=== PATIENT | female | born 1935 | race Caucasian/White ===

== ENCOUNTER 2016-06-03 16:07 | Emergency (ER) | payer MEDICARE, OTHER ==
[~2016-06-03] VITALS: Ht 157.5 cm; Wt 70.0 kg
[~2016-06-03 16:07] MED LIST: ASPI81TA82 PO; ATOR80TA PO; CLOP75 PO; FISH1000 PO; ISOS30; LEVO.075 PO; LOSA100T PO; METO25 PO; NITR.4 SL; PREG75 PO; TAB-TAB PO
[2016-06-03 16:43] VITALS: BP 142/72; PULSE 59; RESP 16; TEMP 97.6; O2SAT 95
--- NOTE | 2016-06-03 17:15 | RADHPO ---
EXAM DATE/TIME: 06/03/2016 16:53 [facility] COMPARISON: No previous studies available for comparison. INDICATIONS : Left foot pain. MEDICAL HISTORY : None. SURGICAL HISTORY : None. ENCOUNTER: Initial ACUITY: 1 week PAIN SCORE: 6/10 LOCATION: Left foot FINDINGS: Three view examination of the left foot demonstrates no soft tissue swelling, dislocation, or fractur e. The tarsal bones appear intact. The interphalangeal and metatarsophalangeal joints are intact. The calcaneus is intact. Bony mineralization is normal. CONCLUSION: Negative for fracture or dislocation. Followup in 7-10 days is suggested if symptoms persist. Raymond Mendez MD FACR on June 03, 2016 at 17:13 Board Certified Radiologist. This report was verified electronically.
[2016-06-03] MEDS ORDERED: CLOP75TA PO (18:48)
[2016-06-03] MEDS ORDERED: ATOR1TAB18 PO (18:48)
[2016-06-03] MEDS ORDERED: LYRI75CA PO (18:48)
[2016-06-03] MEDS ORDERED: SERT-129 PO (18:48)
[2016-06-03] MEDS ORDERED: ASPI81TA81 (18:48)
[2016-06-03] MEDS ORDERED: METO25TA3 PO (18:48)
[2016-06-03] MEDS ORDERED: LOSA100T PO (18:48)
[2016-06-03] MEDS ORDERED: LEVO50TA4 PO (18:48)
[2016-06-03] MEDS ORDERED: CEPH-460 PO (19:00)
--- NOTE | 2016-06-03 19:01 | PD ---
HPI Chief Complaint: Injury Time Seen by Provider: 18:55 Travel History International Travel<30 days: No Contact w/Intl Traveler<30days: No Traveled to known affect area: No History of Present Illness HPI Patient is an 78-year-old female who presents emergency department for evaluation of left foot pain and swelling. Patient states she kicked her bed a week ago Friday, causing bruising and swelling. For the last 2 days she's had redness on the top of her foot. She denies any fever, chills, nausea, vomiting, chest pain, shortness of breath. She states she has neuropathy so she is denying any significant pain at this time. She denies any lesions or abrasions to her foot. PFSH Past Medical History Hx Anticoagulant Therapy: Yes (ON PLAVIX) Arthritis: Yes Blood Disorders: No Anxiety: Yes Heart Rhythm Problems: No Cancer: No Cardiovascular Problems: Yes (CABG) High Cholesterol: Yes Chemotherapy: No Chest Pain: Yes Congestive Heart Failure: No Cerebrovascular Accident: No Coronary Artery Disease: Yes Diabetes: No Diminished Hearing: Yes (BILAT) Endocrine: Yes Gastrointestinal Disorders: Yes (UMBILICAL HERNIA) Genitourinary: Yes (STONES) Hepatitis: No Hiatal Hernia: No Hypertension: Yes Immune Disorder: No Implanted Vascular Access Dvce: Yes Kidney Stones: Yes Medical other: Yes (UMBILICAL HERNIA) Musculoskeletal: Yes (ARTHRITIS HANDS, LEFT KNEE ) Psychiatric: Yes ( ) Reproductive: No Respiratory: No Radiation Therapy: No Seizures: No Thyroid Disease: Yes (HYPOTHYROIDISM) Tetanus Vaccination: < 5 Years Influenza Vaccination: Yes ?: Not Menopausal: Yes Past Surgical History Abdominal Surgery: No AICD: No Body Medical Devices: HARDWARE RIGHT HIP, STERNAL WIRES CARDIAC STENT Cardiac Surgery: Yes (CABG TRIPLE VESSEL -2006 CARDIAC STENT ) Coronary Artery Bypass Graft: Yes Coronary Stent: Yes Ear Surgery: No Endocrine Surgery: No Eye Surgery: Yes (BILATERAL CATARACT REMOVED) Genitourinary Surgery: No Gynecologic Surgery: No Hysterectomy: No Joint Replacement: No Neurologic Surgery: No Oral Surgery: Yes (T & A ) Pacemaker: No Thoracic Surgery: Yes Tonsillectomy: Yes Other Surgery: Yes (CABG/CARODID ARTERY SX/UMBILICAL HERNIA REPAIR) Social History Alcohol Use: No (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) Tobacco Use: No Substance Use: No Allergies-Medications (Allergen,Severity, Reaction): Coded Allergies: Sulfa (Verified Allergy, Severe, RASH/SWEELING/ITCHING/HIVES, 06/03/16) Reported Meds & Prescriptions Reported Meds & Active Scripts Active Reported Aspir-81 (Aspirin) 81 Mg Tabdr Sertraline (Sertraline HCl) 100 Mg Tab 100 Mg PO DAILY Losartan (Losartan Potassium) 100 Mg Tab 100 Mg PO DAILY Atorvastatin (Atorvastatin Calcium) 80 Mg Tab 80 Mg PO HS Clopidogrel (Clopidogrel Bisulfate) 75 Mg Tab 75 Mg PO DAILY Lyrica (Pregabalin) 75 Mg Cap 75 Mg PO TID Metoprolol Tartrate 25 Mg Tab 25 Mg PO DAILY Levothyroxine (Levothyroxine Sodium) 50 Mcg Tab 50 Mcg PO DAILY Review of Systems Except as stated in HPI: all other systems reviewed are Neg Musculoskeletal: Positive: Myalgias, Edema Skin: Positive Change in Pigmentation Physical Exam Narrative GENERAL: Well-nourished, well-developed patient. SKIN: Warm and dry. HEAD: Normocephalic. EYES: No scleral icterus. No injection or drainage. NECK: Supple, trachea midline. No JVD or lymphadenopathy. CARDIOVASCULAR: Regular rate and rhythm without murmurs, gallops, or rubs. RESPIRATORY: Breath sounds equal bilaterally. No accessory muscle use. GASTROINTESTINAL: Abdomen soft, non-tender, nondistended. MUSCULOSKELETAL: No cyanosis, edema and ecchymosis noted to the left foot on the dorsal aspect. Positive pedal pulses, brisk less than 3 second capillary refill. There is a 5 cm area of induration to the lateral aspect of the left foot dorsally. Full range of motion in left ankle and toes BACK: Nontender without obvious deformity. No CVA tenderness. Data Data Last Documented VS Vital Signs Date Time Temp Pulse Resp B/P Pulse Ox O2 Delivery O2 Flow Rate FiO2 06/03/16 16:43 97.6 59 16 142/72 95 Orders Foot, Complete ([id number]) (06/03/16 ) MDM Medical Decision Making Medical Screen Exam Complete: Yes Emergency Medical Condition: Yes Interpretation(s) Vital Signs Date Time Temp Pulse Resp B/P Pulse Ox O2 Delivery O2 Flow Rate FiO2 06/03/16 16:43 97.6 59 16 142/72 95 Differential Diagnosis Cellulitis versus abscess versus contusion versus fracture versus sprain versus other Narrative Course Patient is a 1-year-old female who presented to him for reevaluation of left foot pain, swelling, redness. Swelling started a week ago when she kicked her bed however it has gotten red over the last 2 days prompting the visit to the emergency room. On exam and appears patient has a developing cellulitis, her vital signs are stable, she is afebrile, and she is neurovascularly intact. There is no edema or pain in her calf. At this time patient will be provided with a prescription for Keflex, she was advised to follow-up with her primary Dr. Cuello in 1-2 days. Return to emergency department immediately for any new or worsening symptoms or if the redness spread despite being on antibiotic therapy. She was further encouraged to keep her extremity elevated and apply a cool compress to affected area. She verbalized understanding of these instructions. Family is present for instructions. Patient is stable for discharge. Diagnosis Primary Impression: Contusion, foot Qualified Code: S90.32XA - Contusion of left foot, initial encounter Additional Impression: Cellulitis of foot Referrals: Silverio Robles MD 1 day Patient Instructions: Cellulitis (ED), Foot Contusion (ED), General Instructions Additional Instructions: Follow-up with your primary doctor in 1-2 days Keep extremity elevated, apply cool compress Return to emergency department for any new or worsening symptoms Take medications as directed Med/Other Pt SpecificInfo: Prescription(s) given Scripts Cephalexin (Keflex)500 Mg Cve026 Mg PO Q8H #30 CAP Ref 0 Prov:Andria Rdz 06/03/16 Disposition: 01 DISCHARGE HOME Condition: Stable Andria Rdz Jun 03, 2016 19:00
== END 2016-06-03 19:06 | disposition home or self-care (01) ==
LOC: PHED 16:07 → PHEFT 19:06
DX: S90.32XA Contusion of left foot, initial encounter (principal); L03.116 Cellulitis of left lower limb; I10 Essential (primary) hypertension; E78.00 Pure hypercholesterolemia, unspecified; Z95.1 Presence of aortocoronary bypass graft; Z87.442 Personal history of urinary calculi; Z79.01 Long term (current) use of anticoagulants
CPT/HCPCS: 73630; 99283

== ENCOUNTER → 2016-09-10 | Outpatient (CLI) | payer MEDICARE, OTHER ==
[~2016-09-10] MED LIST changes: +ASPI81TA81; -ASPI81TA82 PO; +ATOR1TAB18 PO; -ATOR80TA PO; +CEPH-460 PO; -CLOP75 PO; +CLOP75TA PO; -FISH1000 PO; +FISH100020 PO; -ISOS30; -LEVO.075 PO; +LEVO25TA4 PO; +LEVO50TA4 PO; +LYRI75CA PO; -METO25 PO; +METO25TA3 PO; +MULT1TAB84 PO; -NITR.4 SL; -PREG75 PO; +SERT-129 PO; -TAB-TAB PO
[2016-09-10 16:38] LABS: AUTOMATED NEUTROPHIL # 3.2 TH/MM3 (1.8-7.7); BASOPHIL # 0.1 TH/MM3 (0-0.2); BASOPHIL % 0.7 % (0.0-2.0); EOSINOPHIL # 0.1 TH/MM3 (0-0.4); EOSINOPHIL % 1.8 % (0.0-4.0); HEMATOCRIT 34.2 % (35.0-46.0); HEMO FLAGS DIFF FINAL; LYMPHOCYTE # 3.4 TH/MM3 (1.0-4.8); MEAN CELL VOLUME 91.5 FL (80.0-100.0); MEAN CORPUSCULAR HEMOGLOBIN 31.4 PG (27.0-34.0); MEAN CORPUSCULAR HGB CONC 34.3 % (32.0-36.0); MONO % 10.7 % (0.0-8.0); NEUT % 41.8 % (16.0-70.0); PLATELET COUNT 235 TH/MM3 (150-450); RED BLOOD COUNT 3.74 MIL/MM3 (4.00-5.30); RED CELL DISTRIBUTION WIDTH 13.2 % (11.6-17.2); WHITE BLOOD COUNT 7.6 TH/MM3 (4.0-11.0)
[2016-09-10 17:04] LABS: ALKALINE PHOSPHATASE 113 U/L (45-117); ALT (GPT) 20 U/L (10-53); ANION GAP 10 MEQ/L (5-15); AST (GOT) 24 U/L (15-37); BICARBONATE 27.1 MEQ/L (21.0-32.0); BLOOD UREA NITROGEN 17 MG/DL (7-18); CHLORIDE 100 MEQ/L (98-107); GLOMERULAR FILTRATION RATE 58 ML/MIN (>89); GLUCOSE,FASTING 98 MG/DL (74-99); HDL CHOLESTEROL 44.9 MG/DL (40.0-60.0); LDL CHOLESTEROL 38 MG/DL (0-99); POTASSIUM 4.3 MEQ/L (3.5-5.1); SODIUM (NA) 137 MEQ/L (136-145); TOTAL BILIRUBIN ADULT 0.6 MG/DL (0.2-1.0)
== END ==
LOC: PLAB 11:25
PROVIDERS: ATTEND Family Medicine
DX: I10 Essential (primary) hypertension (principal); E03.9 Hypothyroidism, unspecified; G50.0 Trigeminal neuralgia
CPT/HCPCS: 36415; 80053; 80061; 84443; 85025

== ENCOUNTER 2016-09-18 13:42 | Emergency (ER) | payer MEDICARE, OTHER ==
[~2016-09-18] VITALS: Ht 160 cm; Wt 72.0 kg
[~2016-09-18 13:42] MED LIST changes: -FISH100020 PO; -LEVO25TA4 PO; -MULT1TAB84 PO
[2016-09-18 13:50] VITALS: RESP 17; O2SAT 97
[2016-09-18 13:53] VITALS: BP 138/58; PULSE 62; RESP 17; TEMP 98.2; O2SAT 97
[2016-09-18] MEDS ORDERED: SODIUM CHLOR 0.9% 1000 ML INJ 1,000 ML IV SCH (13:58)
[2016-09-18] MEDS ORDERED: SODIUM CHLORIDE 0.9% FLUSH 5 ML FLUSH IV FLUSH PRN (14:00)
--- NOTE | 2016-09-18 14:06 | PD ---
HPI Chief Complaint: Syncope/Near-Syncope Time Seen by Provider: 13:48 Travel History International Travel<30 days: No Contact w/Intl Traveler<30days: No Traveled to known affect area: No History of Present Illness HPI This is an 81-year-old female who presents to the emergency department having, and because she was sitting reading a magazine when she started to feel funny and then she lost some time and woke up and thought she might have passed out. She didn't lose her bowels or bladder. She didn't injure herself or fall over. She denies any chest pain, nausea, vomiting or diaphoresis. She has not recently been ill. This is never happened to her before. She does have a history of heart disease and had a CABG in the past and she's had a carotid endarterectomy on the right. Currently she feels back to normal. She lives alone and no one was there to witness the incident. PFSH Past Medical History Hx Anticoagulant Therapy: Yes (ON PLAVIX) Arthritis: Yes Blood Disorders: No Anxiety: Yes Heart Rhythm Problems: No Cancer: No Cardiovascular Problems: Yes (CABG) High Cholesterol: Yes Chemotherapy: No Chest Pain: Yes Congestive Heart Failure: No Cerebrovascular Accident: No Coronary Artery Disease: Yes Diabetes: No Diminished Hearing: Yes (BILAT) Endocrine: Yes Gastrointestinal Disorders: Yes (UMBILICAL HERNIA) Genitourinary: Yes (STONES) Hepatitis: No Hiatal Hernia: No Hypertension: Yes Immune Disorder: No Implanted Vascular Access Dvce: Yes Kidney Stones: Yes Musculoskeletal: Yes (ARTHRITIS HANDS, LEFT KNEE ) Psychiatric: Yes ( ) Reproductive: No Respiratory: No Radiation Therapy: No Seizures: No Thyroid Disease: Yes (HYPOTHYROIDISM) Menopausal: Yes Past Surgical History Abdominal Surgery: No AICD: No Body Medical Devices: HARDWARE RIGHT HIP, STERNAL WIRES CARDIAC STENT Cardiac Surgery: Yes (CABG TRIPLE VESSEL -2006 CARDIAC STENT ) Coronary Artery Bypass Graft: Yes Coronary Stent: Yes Ear Surgery: No Endocrine Surgery: No Eye Surgery: Yes (BILATERAL CATARACT REMOVED) Genitourinary Surgery: No Gynecologic Surgery: No Hysterectomy: No Joint Replacement: No Neurologic Surgery: No Oral Surgery: Yes (T & A ) Pacemaker: No Thoracic Surgery: Yes Tonsillectomy: Yes Other Surgery: Yes (CABG/CARODID ARTERY SX/UMBILICAL HERNIA REPAIR) Social History Alcohol Use: No (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) Tobacco Use: No Substance Use: No Allergies-Medications (Allergen,Severity, Reaction): Coded Allergies: Sulfa (Verified Allergy, Severe, RASH/SWEELING/ITCHING/HIVES, 09/18/16) Reported Meds & Prescriptions Reported Meds & Active Scripts Active Reported Fish Oil 1000 mg (Logan-3 Fatty Acids) 1 Cap Cap 1 Cap PO DAILY Multivitamin Adults (Multiple Vitamins W/ Minerals) 1 Tab 1 Tab PO DAILY Levothyroxine (Levothyroxine Sodium) 25 Mcg Tab 37.5 Mcg PO DAILY Aspir-81 (Aspirin) 81 Mg Tabdr Sertraline (Sertraline HCl) 100 Mg Tab 100 Mg PO DAILY Losartan (Losartan Potassium) 100 Mg Tab 100 Mg PO DAILY Atorvastatin (Atorvastatin Calcium) 80 Mg Tab 80 Mg PO HS Clopidogrel (Clopidogrel Bisulfate) 75 Mg Tab 75 Mg PO DAILY Lyrica (Pregabalin) 75 Mg Cap 150 Mg PO BID Metoprolol Tartrate 25 Mg Tab 25 Mg PO DAILY Review of Systems Except as stated in HPI: all other systems reviewed are Neg Physical Exam Narrative GENERAL:Well appearing, no acute distress SKIN: Dry with skin tenting. HEAD: Atraumatic. Normocephalic. EYES: Pupils equal and round. No injection or drainage. ENT: Moist mucous membranes NECK: Trachea midline. CARDIOVASCULAR: Regular rate and rhythm. No murmur appreciated. RESPIRATORY: Clear to auscultation. Breath sounds equal bilaterally. GASTROINTESTINAL: Abdomen soft, non-tender, nondistended. MUSCULOSKELETAL: No obvious deformities. NEUROLOGICAL: Awake and alert. No obvious cranial nerve deficits. Moving all extremities. PSYCHIATRIC: Appropriate mood and affect; insight and judgment normal. Data Data Last Documented VS Vital Signs Date Time Temp Pulse Resp B/P Pulse Ox O2 Delivery O2 Flow Rate FiO2 09/18/16 15:50 60 16 156/74 97 Room Air 09/18/16 13:53 98.2 Orders Electrocardiogram (09/18/16 13:58) Complete Blood Count With Diff (09/18/16 13:58) Comprehensive Metabolic Panel (09/18/16 13:58) Troponin I (09/18/16 13:58) Ua Includes Microscopic (09/18/16 13:58) Ct Brain W/O Iv Contrast(Rout) (09/18/16 13:58) Blood Glucose (09/18/16 13:58) Ecg Monitoring (09/18/16 13:58) Iv Access Insert/Monitor (09/18/16 13:58) Oximetry (09/18/16 13:58) Sodium Chloride 0.9% Flush (Ns Flush) (09/18/16 14:00) Sodium Chlor 0.9% 1000 Ml Inj (Ns 1000 M (09/18/16 13:58) Labs Laboratory Tests Test 09/18/16 14:05 White Blood Count 8.3 TH/MM3 Red Blood Count 3.93 MIL/MM3 Hemoglobin 12.2 GM/DL Hematocrit 36.7 % Mean Corpuscular Volume 93.5 FL Mean Corpuscular Hemoglobin 31.1 PG Mean Corpuscular Hemoglobin 33.3 % Concent Red Cell Distribution Width 12.9 % Platelet Count 269 TH/MM3 Mean Platelet Volume 8.0 FL Neutrophils (%) (Auto) 50.3 % Lymphocytes (%) (Auto) 38.0 % Monocytes (%) (Auto) 9.9 % Eosinophils (%) (Auto) 1.4 % Basophils (%) (Auto) 0.4 % Neutrophils # (Auto) 4.3 TH/MM3 Lymphocytes # (Auto) 3.1 TH/MM3 Monocytes # (Auto) 0.8 TH/MM3 Eosinophils # (Auto) 0.1 TH/MM3 Basophils # (Auto) 0.0 TH/MM3 CBC Comment DIFF FINAL Differential Comment Sodium Level 136 MEQ/L Potassium Level 4.5 MEQ/L Chloride Level 99 MEQ/L Carbon Dioxide Level 27.8 MEQ/L Anion Gap 9 MEQ/L Blood Urea Nitrogen 18 MG/DL Creatinine 0.94 MG/DL Estimat Glomerular Filtration 57 ML/MIN Rate Random Glucose 112 MG/DL Calcium Level 9.3 MG/DL Total Bilirubin 0.7 MG/DL Aspartate Amino Transf 22 U/L (AST/SGOT) Alanine Aminotransferase 22 U/L (ALT/SGPT) Alkaline Phosphatase 93 U/L Troponin I LESS THAN 0.02 NG/ML Total Protein 7.0 GM/DL Albumin 4.0 GM/DL [facility] Medical Decision Making Medical Screen Exam Complete: Yes Emergency Medical Condition: Yes Interpretation(s) EKG: Normal sinus rhythm, right bundle branch block seen on prior EKG No leukocytosis Electrolytes are reassuring Troponin is normal CT of the head is negative for intracranial hemorrhage Differential Diagnosis Arrhythmia, electrolyte abnormality, TIA, seizure Narrative Course This is an 81-year-old female who presents to the emergency department having had an episode where she thinks she may have passed out. She was alone and the episode was unwitnessed. It's unclear if she truly lost consciousness. She has a normal neurologic exam currently. She was placed on a monitor and an IV was established. Labs are reassuring. EKG is similar to prior. I had a conversation with the patient regarding observation versus management at home. She prefers to go home and I think that's reasonable. She does have some concerning risk factors including coronary artery disease, however she has an upcoming appointment with her primary care physician within the week and her EKG is at baseline and she's had no chest pain associated with the episode. I asked her to discuss with him the symptoms indicates that they want to perform further testing. If she feels worse she will return to the emergency department. Diagnosis Primary Impression: Lightheadedness Patient Instructions: General Instructions Additional Instructions: If you develop severe chest pain, shortness of breath, sweating, lightheadedness , dizziness or difficulty breathing return to the emergency department immediately. Followup with your primary care physician in 2-3 days if your symptoms are not resolved. Med/Other Pt SpecificInfo: No Change to Meds Disposition: 01 DISCHARGE HOME Condition: Stable Mari Acosta MD September 18, 2016 14:06
[2016-09-18 14:36] LABS: AUTOMATED NEUTROPHIL # 4.3 TH/MM3 (1.8-7.7); BASOPHIL % 0.4 % (0.0-2.0); EOSINOPHIL # 0.1 TH/MM3 (0-0.4); EOSINOPHIL % 1.4 % (0.0-4.0); HEMATOCRIT 36.7 % (35.0-46.0); HEMO FLAGS DIFF FINAL; LYMPHOCYTE # 3.1 TH/MM3 (1.0-4.8); MEAN CELL VOLUME 93.5 FL (80.0-100.0); MEAN CORPUSCULAR HEMOGLOBIN 31.1 PG (27.0-34.0); MEAN CORPUSCULAR HGB CONC 33.3 % (32.0-36.0); MONO % 9.9 % (0.0-8.0); NEUT % 50.3 % (16.0-70.0); PLATELET COUNT 269 TH/MM3 (150-450); RED BLOOD COUNT 3.93 MIL/MM3 (4.00-5.30); RED CELL DISTRIBUTION WIDTH 12.9 % (11.6-17.2); WHITE BLOOD COUNT 8.3 TH/MM3 (4.0-11.0)
[2016-09-18] MEDS ORDERED: LEVO25TA4 PO (14:37)
[2016-09-18] MEDS ORDERED: MULT1TAB84 PO (14:37)
[2016-09-18] MEDS ORDERED: FISH100020 PO (14:37)
[2016-09-18 14:42] LABS: CHLORIDE 99 MEQ/L (98-107); POTASSIUM 4.5 MEQ/L (3.5-5.1); SODIUM (NA) 136 MEQ/L (136-145)
[2016-09-18 14:45] LABS: ANION GAP 9 MEQ/L (5-15); BICARBONATE 27.8 MEQ/L (21.0-32.0)
[2016-09-18 14:46] LABS: BLOOD UREA NITROGEN 18 MG/DL (7-18)
[2016-09-18 14:48] LABS: ALT (GPT) 22 U/L (10-53); AST (GOT) 22 U/L (15-37)
[2016-09-18 14:49] LABS: GLOMERULAR FILTRATION RATE 57 ML/MIN (>89)
[2016-09-18 14:50] VITALS: BP 138/76; PULSE 58; RESP 16; O2SAT 96
[2016-09-18 14:50] LABS: TOTAL BILIRUBIN ADULT 0.7 MG/DL (0.2-1.0)
[2016-09-18 14:51] LABS: ALKALINE PHOSPHATASE 93 U/L (45-117)
--- NOTE | 2016-09-18 15:38 | RADHPO ---
EXAM DATE/TIME: 09/18/2016 15:04 [facility] COMPARISON: CT BRAIN W/O CONTRAST, September 01, 2013, 21:20. INDICATIONS : Syncopal episode. Altered mental status RADIATION DOSE: 63.15 CTDIvol (mGy) MEDICAL HISTORY : Cardiovascular disease. Hypertension. SURGICAL HISTORY : None. ENCOUNTER: Initial ACUITY: 1 day PAIN SCALE: 0/10 LOCATION: cranial TECHNIQUE: Multiple contiguous axial images were obtained of the head. Using automated exposure control and adj ustment of the mA and/or kV according to patient size, radiation dose was kept as low as reasonably a chievable to obtain optimal diagnostic quality images. FINDINGS: CEREBRUM: The ventricles are normal for age. No evidence of midline shift, mass lesion, hemorrhage or acute in farction. No extra-axial fluid collections are seen. POSTERIOR FOSSA: The cerebellum and brainstem are intact. The 4th ventricle is midline. The cerebellopontine angle i s unremarkable. EXTRACRANIAL: The visualized portion of the orbits is intact. SKULL: The calvaria is intact. No evidence of skull fracture. CONCLUSION: Normal examination. Trent Landaverde MD on September 18, 2016 at 15:34 Board Certified Radiologist. This report was verified electronically.
[2016-09-18 15:50] VITALS: BP 156/74; PULSE 60; RESP 16; O2SAT 97
[2016-09-18 16:50] VITALS: BP 151/74; PULSE 63; RESP 16; O2SAT 98
--- NOTE | 2016-09-19 17:36 | EKG ---
Date Performed: 09/18/2016 Time Performed: 13:53:24 PTAGE: 81 years EKG: Probable sinus bradycardia Right bundle branch block Low QRS voltages in precordial leads A bnormal ECG PREVIOUS TRACING : 02/03/2016 04.40 Compared to prior tracing no significant change DOCTOR: Lenard Vences Interpretating Date/Time 09/19/2016 17:35:41
== END 2016-09-18 17:37 | disposition home or self-care (01) ==
LOC: PHED 13:42
DX: R42 Dizziness and giddiness (principal); R55 Syncope and collapse; I45.10 Unspecified right bundle-branch block; F41.9 Anxiety disorder, unspecified; E78.00 Pure hypercholesterolemia, unspecified; I25.10 Atherosclerotic heart disease of native coronary artery without angina pectoris; I10 Essential (primary) hypertension; E03.9 Hypothyroidism, unspecified; Z79.02 Long term (current) use of antithrombotics/antiplatelets
CPT/HCPCS: 70450; 80053; 84484; 85025; 93005; 96360; 96361; 99285; J7030

== ENCOUNTER 2017-05-06 09:46 | Emergency (ER) | payer MEDICARE, OTHER ==
[~2017-05-06] VITALS: Ht 160 cm; Wt 69.8 kg
[~2017-05-06 09:46] MED LIST changes: -ATOR1TAB18 PO; +ATOR80TA45 PO; -CEPH-460 PO; +FISH100020 PO; +LEVO25TA4 PO; -LEVO50TA4 PO; +MULT1TAB84 PO
[2017-05-06 09:51] VITALS: BP 169/74; PULSE 76; RESP 18; TEMP 99.4; O2SAT 93
[2017-05-06] MEDS ORDERED: MULT-65 PO (10:01)
--- NOTE | 2017-05-06 10:05 | PD ---
HPI Chief Complaint: Cold / Flu Symptoms Time Seen by Provider: 09:56 Travel History International Travel<30 days: No Contact w/Intl Traveler<30days: No Traveled to known affect area: No History of Present Illness HPI Patient comes emergency Department complaining of cough and congestion ongoing for 5 days. Patient states that she called her doctor yesterday who prescribed a Z-Dereck which she took a dose yesterday and today. Patient reports that she was up coughing all night. Patient reports she has been having a productive cough with greenish phlegm. Patient denies any fevers, nausea or vomiting, abdominal pain, chest pain, change in bowel or bladder. Patient also has concerns over left ear noted to be bleeding this morning. Patient denies any pain, radiation of pain, or known injury. Denies anything making it better or worse. Patient placed cotton ball to help with the bleeding. PFSH Past Medical History Hx Anticoagulant Therapy: Yes (PLAVIX) Arthritis: Yes Blood Disorders: No Anxiety: Yes Heart Rhythm Problems: No Cancer: No Cardiovascular Problems: Yes (CABG) High Cholesterol: Yes Chemotherapy: No Chest Pain: Yes Congestive Heart Failure: No Cerebrovascular Accident: No Coronary Artery Disease: Yes Diabetes: No Diminished Hearing: Yes (BILAT) Endocrine: Yes Gastrointestinal Disorders: Yes (UMBILICAL HERNIA) Genitourinary: Yes (STONES) Hepatitis: No Hiatal Hernia: No Hypertension: Yes Immune Disorder: No Implanted Vascular Access Dvce: Yes Kidney Stones: Yes Musculoskeletal: Yes (ARTHRITIS HANDS, LEFT KNEE ) Psychiatric: Yes ( ) Reproductive: No Respiratory: No Immunizations Current: Yes Radiation Therapy: No Seizures: No Thyroid Disease: Yes (HYPOTHYROIDISM) Menopausal: Yes Past Surgical History Abdominal Surgery: No AICD: No Body Medical Devices: HARDWARE RIGHT HIP, STERNAL WIRES CARDIAC STENT Cardiac Surgery: Yes (CABG TRIPLE VESSEL -2006 CARDIAC STENT ) Coronary Artery Bypass Graft: Yes Coronary Stent: Yes Ear Surgery: No Endocrine Surgery: No Eye Surgery: Yes (BILATERAL CATARACT REMOVED) Genitourinary Surgery: No Gynecologic Surgery: No Hysterectomy: No Joint Replacement: No Neurologic Surgery: No Oral Surgery: Yes (T & A ) Pacemaker: No Thoracic Surgery: Yes Tonsillectomy: Yes Other Surgery: Yes (CABG/CARODID ARTERY SX/UMBILICAL HERNIA REPAIR) Social History Alcohol Use: No (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) Tobacco Use: No Substance Use: No Allergies-Medications (Allergen,Severity, Reaction): Coded Allergies: Sulfa (Sulfonamide Antibiotics) (Unverified Allergy, Severe, RASH/SWEELING /ITCHING/HIVES, 05/06/17) Reported Meds & Prescriptions Reported Meds & Active Scripts Active Ciprodex Otic Drops (Ciprofloxacin-Dexamethasone Otic Drops) 0.3-0.1% Susp 4 Drop LEFT EAR BID 10 Days Ventolin Hfa 18 GM Inh (Albuterol Sulfate) 90 Mcg/Act Aer 2 Puff INH Q4H PRN Reported Multi-Vitamin Daily (Multiple Vitamin) 1 Tab Tab 1 Tab PO DAILY Fish Oil 1000 mg ([place]-3 Fatty Acids) 1 Cap Cap 1 Cap PO DAILY Levothyroxine (Levothyroxine Sodium) 25 Mcg Tab 37.5 Mcg PO DAILY Aspir-81 (Aspirin) 81 Mg Tabdr Sertraline (Sertraline HCl) 100 Mg Tab 100 Mg PO DAILY Losartan (Losartan Potassium) 100 Mg Tab 100 Mg PO DAILY Atorvastatin (Atorvastatin Calcium) 80 Mg Tab 80 Mg PO HS Clopidogrel (Clopidogrel Bisulfate) 75 Mg Tab 75 Mg PO DAILY Lyrica (Pregabalin) 75 Mg Cap 150 Mg PO BID Metoprolol Tartrate 25 Mg Tab 25 Mg PO DAILY Review of Systems Except as stated in HPI: all other systems reviewed are Neg Physical Exam Narrative GENERAL: Well-developed, overly nourished, in no acute distress, and non-ill appearing. SKIN: Focused skin assessment warm and dry. HEAD: Atraumatic. Normocephalic. EYES: Pupils equal and round. EOMI. No scleral icterus. No injection or drainage. ENT: No nasal bleeding or discharge. Mucous membranes pink and moist. Right tympanic membrane pearly dill. Left tympanic membranes obscured by purulent drainage. No tenderness to facial sinus to palpation. Posterior pharynx nonerythematous without exudate. Uvula is midline. NECK: Trachea midline. No cervical lymphadenopathy. Supple. No nuclear rigidity. CARDIOVASCULAR: Regular rate and rhythm. No murmur appreciated. RESPIRATORY: No accessory muscle use. No respiratory distress. Clear to auscultation. Breath sounds equal bilaterally. Dry cough noted on exam. Patient speaking in full sentences without difficulty. MUSCULOSKELETAL: No obvious deformities. No clubbing. No cyanosis. No edema. Full range of motion. NEUROLOGICAL: Awake and alert. No obvious cranial nerve deficits. Motor grossly within normal limits. Normal speech. PSYCHIATRIC: Appropriate mood and affect; insight and judgment normal. Data Data Last Documented VS Vital Signs Date Time Temp Pulse Resp B/P (MAP) Pulse Ox O2 Delivery O2 Flow Rate FiO2 05/06/17 09:51 99.4 76 18 169/74 (105) 93 Orders Orders Albuterol-Ipratropium Neb (Duoneb Neb) (05/06/17 10:15) Resp Mdi/Instruction (05/06/17 10:02) Chest, Single Ap (05/06/17 ) Influenzae A/B Antigen (05/06/17 10:02) Ed Discharge Order (05/06/17 11:17) MDM Medical Decision Making Medical Screen Exam Complete: Yes Emergency Medical Condition: Yes Differential Diagnosis Pneumonia, bronchitis, URI, viral syndrome, otitis media, otitis externa, otalgia Narrative Course Patients symptom complex is consistent with bronchitis. The patient is non-ill appearing and is in no respiratory distress and comfortable. The patient moves air well and oxygen saturations are normal. Chest x-ray revealed no evidence of obvious consolidation of infiltrate. There is no clinical evidence to suggest pneumonia at this time. Plan of care and management were discussed with the patient who agreed with plan. The patient was instructed to follow up with their physician and instructed to return if worsens, progressively worsening shortness of breath or difficulty breathing, persistent fever, chest pains or discomfort, inability to keep medication or fluids down with or without vomiting , or as needed. The patient also presented with ear pain. History and examination revealed evidence of otitis externa. There was no significant swelling of the canal nor significant debris. No clinical evidence by history or evaluation to suspect meningitis and/or sepsis, nor malignant OE or mastoiditis. I discussed with the patient, diagnosis, plan of care and to follow up with the patients primary physician and/or ENT within the next week. The patient was discharged on otic antibiotic drops. The patient was instructed to not swim or submerge head in bath or shower, or any other activity that would allow water into canal until cleared by their physician. The patient was instructed to return if worsens in anyway, especially if increased pain, develop fever, worsening headache, neck pain or as needed. The patient agreed with plan. Patient in no obvious distress upon re-evaluation. All pertinent laboratory/ Radiology result(s) discussed with patient/family. Patient was asked if they wanted to speak to my attending, which the patient did not wish to do at this time. Any questions/concerns in reference to patient diagnosis/condition discussed and clarified prior to patient's discharge. Reinforced sheer importance of close follow up with patient's primary physician or primary care clinic and/or ENT. Instructed patient to return to ED immediately, if symptoms return/worsen. Patient showed understanding of above instructions. Further instructions and recommendations were detailed in discharge paperwork. Patient ambulated without difficulty out of ED at discharge. Diagnosis Primary Impression: Bronchitis Additional Impression: Otitis externa Qualified Codes: H60.502 - Unspecified acute noninfective otitis externa, left ear Patient Instructions: Acute Bronchitis (ED), General Instructions, Otitis Externa (ED) Additional Instructions: Follow-up with your primary care physician in 3-5 days for reevaluation. Take all medication as prescribed. Return to the emergency department if symptoms get worse. Med/Other Pt SpecificInfo: Prescription(s) given Scripts Ciprofloxacin-Dexamethasone Otic Drops (Ciprodex Otic Drops) 0.3-0.1% Susp 4 DROP LEFT EAR BID for Infection for 10 Days, #1 BOTTLE 0 Refills Prov: Mamadou Palma MD 05/06/17 Albuterol 18 GM Inh (Ventolin Hfa 18 GM Inh) 90 Mcg/Act Aer 2 PUFF INH Q4H Y for COUGH, #1 INHALER 0 Refills Prov: Mamadou Palma MD 05/06/17 Disposition: 01 DISCHARGE HOME Condition: Stable Cruz Mueller May 06, 2017 10:05
[2017-05-06] MEDS ORDERED: RESP: ALBUTEROL 2.5 MG/IPRATROPIUM 0.5 MG NEB (SCH) INH ONE (10:15)
--- NOTE | 2017-05-06 11:09 | RADRPT ---
EXAM DATE/TIME: 05/06/2017 10:33 [facility] COMPARISON: CHEST SINGLE AP, February 02, 2016, 22:31. INDICATIONS : Cough, short of breath. MEDICAL HISTORY : Hypertension. Hypercholesterolemia. Hypothyroidism. Neuropathy, CAD, Umbilical hernia, Kidney ston SURGICAL HISTORY : Umbilical hernia repair. Coronary artery stent. CABG ENCOUNTER: Initial ACUITY: 4 - 6 days PAIN SCORE: 0/10 LOCATION: Bilateral chest FINDINGS: A single view of the chest demonstrates the lungs to be symmetrically aerated without evidence of mas s, infiltrate or effusion. There is mild scarring. The cardiomediastinal contours are unremarkable. Osseous structures are intact. The patient is again noted to be status post median sternotomy for byp ass grafting procedure. Atherosclerotic changes are present in the aorta. CONCLUSION: Stable appearance status post bypass grafting procedure with no evidence of pneumonia . Latrell Gr MD on May 06, 2017 at 11:06 Board Certified Radiologist. This report was verified electronically.
[2017-05-06] MEDS ORDERED: CIPR0.3S LEFT EAR (11:15)
[2017-05-06] MEDS ORDERED: VENTAER INH (11:15)
== END 2017-05-06 11:32 | disposition home or self-care (01) ==
LOC: PHEFT 09:46
DX: J40 Bronchitis, not specified as acute or chronic (principal); H60.502 Unspecified acute noninfective otitis externa, left ear; I10 Essential (primary) hypertension; E03.9 Hypothyroidism, unspecified; E78.00 Pure hypercholesterolemia, unspecified; I25.10 Atherosclerotic heart disease of native coronary artery without angina pectoris; M19.90 Unspecified osteoarthritis, unspecified site; F41.9 Anxiety disorder, unspecified; Z95.1 Presence of aortocoronary bypass graft; Z87.442 Personal history of urinary calculi; Z87.39 Personal history of other diseases of the musculoskeletal system and connective tissue
CPT/HCPCS: 71045; 87804; 94664; 99284

== ENCOUNTER → 2017-09-25 | Outpatient (CLI) | payer MEDICARE, OTHER ==
[~2017-09-25] MED LIST changes: +CIPR0.3S LEFT EAR; +MULT-65 PO; -MULT1TAB84 PO; +VENTAER INH
[2017-09-25 13:57] LABS: AUTOMATED NEUTROPHIL # 3.2 TH/MM3 (1.8-7.7); BASOPHIL # 0.1 TH/MM3 (0-0.2); BASOPHIL % 0.9 % (0.0-2.0); EOSINOPHIL # 0.1 TH/MM3 (0-0.4); EOSINOPHIL % 1.8 % (0.0-4.0); HEMATOCRIT 35.1 % (35.0-46.0); HEMOGLOBIN 11.9 GM/DL (11.6-15.3); LYMPH % 44.5 % (9.0-44.0); LYMPHOCYTE # 3.3 TH/MM3 (1.0-4.8); MEAN CELL VOLUME 93.4 FL (80.0-100.0); MEAN CORPUSCULAR HEMOGLOBIN 31.7 PG (27.0-34.0); MEAN CORPUSCULAR HGB CONC 33.9 % (32.0-36.0); MEAN PLATELET VOLUME 8.2 FL (7.0-11.0); MONO % 10.6 % (0.0-8.0); MONOCYTE # 0.8 TH/MM3 (0-0.9); NEUT % 42.2 % (16.0-70.0); PLATELET COUNT 255 TH/MM3 (150-450); RED BLOOD COUNT 3.75 MIL/MM3 (4.00-5.30); RED CELL DISTRIBUTION WIDTH 12.9 % (11.6-17.2); WHITE BLOOD COUNT 7.5 TH/MM3 (4.0-11.0)
[2017-09-25 13:58] LABS: ALBUMIN 4.1 GM/DL (3.4-5.0); AST (GOT) 27 U/L (15-37); BICARBONATE 27.5 MEQ/L (21.0-32.0); BLOOD UREA NITROGEN 13 MG/DL (7-18); CALCIUM 9.2 MG/DL (8.5-10.1); CHLORIDE 99 MEQ/L (98-107); CHOLESTEROL 115 MG/DL (120-200); CREATININE 0.93 MG/DL (0.50-1.00); GLOMERULAR FILTRATION RATE 57 ML/MIN (>89); GLUCOSE,FASTING 104 MG/DL (74-99); SODIUM (NA) 136 MEQ/L (136-145); TRIGLYCERIDES 142 MG/DL (42-150)
[2017-09-25 14:11] LABS: ALKALINE PHOSPHATASE 94 U/L (45-117); ALT (GPT) 24 U/L (10-53); CHOLESTEROL/ HDL RATIO 2.37 RATIO; HDL CHOLESTEROL 48.4 MG/DL (40.0-60.0); LDL CHOLESTEROL 38 MG/DL (0-99); TOTAL BILIRUBIN ADULT 0.8 MG/DL (0.2-1.0); TOTAL PROTEIN 7.2 GM/DL (6.4-8.2)
== END ==
LOC: PLAB 11:16
PROVIDERS: ATTEND Family Medicine
DX: E78.5 Hyperlipidemia, unspecified (principal); E03.9 Hypothyroidism, unspecified; I10 Essential (primary) hypertension
CPT/HCPCS: 36415; 80053; 80061; 84443; 85025